=== PATIENT | male | born 1970 | race Caucasian/White ===

== ENCOUNTER 2017-09-27 06:04 | Emergency (ER) | payer OTHER ==
[~2017-09-27] VITALS: Ht 185.4 cm; Wt 86.7 kg
[2017-09-27 08:17] VITALS: BP 125/85
== END 2017-09-27 08:21 | disposition home or self-care (01) ==
LOC: EME → TRA 06:04 → EDBD 06:04 → EME 06:04 → TRA 08:21
DX: M25.561 Pain in right knee (principal); R07.81 Pleurodynia; V49.40XA Driver injured in collision with unspecified motor vehicles in traffic accident, initial encounter; Y92.410 Unspecified street and highway as the place of occurrence of the external cause; Z98.1 Arthrodesis status
CPT/HCPCS: 71250; 73564; 99281; 99284